=== PATIENT | male | born 1955 ===

== ENCOUNTER 2017-09-29 12:44 | Day surgery (SDC) | payer OTHER ==
[~2017-09-29] VITALS: Ht 193 cm; Wt 96.8 kg
[~2017-09-29 12:44] MED LIST: FENO54 PO; FLUT44OIA INH; Omeprazole20 M1; ROSU10TA PO; ZESTORETIC 20-121 EA
== END 2017-09-29 15:00 | disposition home or self-care (01) ==
LOC: ORSCSDS 12:44 → ORD 14:00 → ORSCSDS 15:00
PROVIDERS: Internal Medicine Gastroenterology
PROC: 0DBL8ZX Excision of Transverse Colon, Via Natural or Artificial Opening Endoscopic, Diagnostic (ICD-10-PCS; principal; 2017-09-29 14:00)
DX: Z12.11 Encounter for screening for malignant neoplasm of colon (principal); D12.3 Benign neoplasm of transverse colon; K64.8 Other hemorrhoids; Z86.010 Personal history of colon polyps; I10 Essential (primary) hypertension; E78.00 Pure hypercholesterolemia, unspecified; Z79.899 Other long term (current) drug therapy
CPT/HCPCS: 88305; J1980; J7120

== ENCOUNTER 2018-12-30 07:48 | Day surgery (SDC) | payer OTHER ==
[~2018-12-30] VITALS: Ht 193 cm; Wt 92.0 kg
[~2018-12-30 07:48] MED LIST changes: +Amlodipine Bes2.5 MG PO; +Aspirin EC81 MG PO; +Coq-10100 MG PO; +Crestor20 MG PO; +Daily Multiple1 EACH PO; +FENO160 PO; -FENO54 PO; +FISH OIL 1,4001 EACH PO; -ROSU10TA PO
--- NOTE | 2018-12-30 08:30 | NUR ---
12/30/18 0830 Adrianna Escobedo CALL LIGHT WITHIN REACH
== END 2018-12-30 10:33 | disposition home or self-care (01) ==
LOC: ORSCSDS 07:48
PROVIDERS: Internal Medicine Gastroenterology
PROC: 0DBN8ZX Excision of Sigmoid Colon, Via Natural or Artificial Opening Endoscopic, Diagnostic (ICD-10-PCS; principal; 2018-12-30 09:00)
DX: Z86.010 Personal history of colon polyps (principal); K63.5 Polyp of colon; K64.8 Other hemorrhoids; I10 Essential (primary) hypertension; E78.00 Pure hypercholesterolemia, unspecified; Z79.899 Other long term (current) drug therapy
CPT/HCPCS: 82947; 88305; J2704; J7120

== ENCOUNTER → 2021-04-22 | Outpatient (CLI) | payer OTHER | END | disposition home or self-care (01) | LOC: LAB 11:10 → LAB SHORT 11:10 | DX: C44.229 Squamous cell carcinoma of skin of left ear and external auricular canal (principal) | CPT/HCPCS: 88305 ==